=== PATIENT | female | born 1950 ===

== ENCOUNTER → 2025-01-17 09:50 | Outpatient (REF) | payer MEDICARE, SELFPAY ==
[2025-01-17 12:23] LABS: Blood Urea Nitrogen 12 mg/dl (7-17)
== END ==
LOC: OLABBH 09:50
PROVIDERS: ATTENDING PHYSICIAN Family Medicine
DX: R94.4 Abnormal results of kidney function studies (principal)
CPT/HCPCS: 36415; 82565; 84520

== ENCOUNTER → 2025-01-19 13:44 | Outpatient (REF) | payer MEDICARE, SELFPAY | LOC: RAD 13:44 | PROVIDERS: ATTENDING PHYSICIAN Otolaryngology; FAMILY PHYSICIAN Family Medicine | DX: C02.9 Malignant neoplasm of tongue, unspecified (principal) | CPT/HCPCS: 70492; Q9967 ==